=== PATIENT | female | born 1995 | race Asian ===

== ENCOUNTER 2017-08-01 23:55 | Emergency (ER) | payer OTHER ==
[~2017-08-01] VITALS: Ht 160 cm; Wt 52.8 kg
[2017-08-02 00:09] VITALS: TEMP 37.1; Ht 160 cm; Wt 52.8 kg
[2017-08-02 01:09] LABS: HEMATOCRIT 43.1 % (37-47); MEAN CELL VOLUME 91.3 fL (80-100); MEAN CORPUSCULAR HEMOGLOBIN 29.7 pg (25-34); MEAN CORPUSCULAR HGB CONC 32.5 g/dl (32-36); MEAN PLATELET VOLUME 10.6 fL (7.4-10.4); PLATELET COUNT 237 K/uL (130-400); RED CELL DISTRIBUTION WIDTH CV 12.4 % (11.5-14.5); RED CELL DISTRIBUTION WIDTH SD 41.7 fL (36.4-46.3)
[2017-08-02 01:31] LABS: ALBUMIN 3.9 gm/dl (3.4-5.0); ALT/SGPT 15 U/L (12-78); AST/SGOT 10 U/L (15-37); BLOOD UREA NITROGEN 12 mg/dl (7-18); CALCIUM 8.6 mg/dl (8.5-10.1); CARBON DIOXIDE 25 mmol/L (21-32); CREATININE 0.54 mg/dl (0.60-1.20); GLUCOSE 95 mg/dl (70-99); POTASSIUM 3.9 mmol/L (3.5-5.1); SODIUM 138 mmol/L (136-145)
[2017-08-02 01:41] LABS: ALKALINE PHOSPHATASE 44 U/L (45-117); TOTAL PROTEIN 7.6 gm/dl (6.4-8.2)
--- NOTE | 2017-08-02 09:13 | EMERGENCY ROOM VISIT NOTE ---
History Report prepared by Lexy: Aminah Mooney Under the Supervision of: Dr. Marielena Betancur D.O. First contact with patient: 00:05 Chief Complaint: MENTAL HEALTH EVALUATION Stated Complaint: HYPOTHERMIA History of Present Illness The patient is a 22 year old female who presents to the Emergency Room for a mental health evaluation. Per EMS, they received a call that the patient was walking by [employer] in her [facility]. They report police picked her up at [place]. He reports that she kept telling him she didn't want to go home and she wanted to kill herself, but nothing else. The patient states that she doesn't want to waste my time and that others need help instead of her. She reports that she attends [employer] and is here visiting a friend. She reports that she has been here a month and has taken the semester off. The patient states that tonight she just walked out of her room and was trying to of hypothermia. She states that she is unsure if her friend's noticed that she left. She reports that she has had thoughts of committing suicide in the past, but never tried. She reports that she reads a lot of psychology books and has determined that she is just weak. She states that she has been depressed for a while. The patient states that she is afraid of people. She denies anyone hurting her. The patient denies alcohol use, drug use , abdominal pain, chance of , and seeing a counselor. The patient notes her [facility] is currently. The patient notes her parents are in [place], but she does not want to be called [place]. Source of History: patient Onset: prior to arrival Position: other (global) Quality: other (mental health) Timing: other (episode) Associated Symptoms: No abdominal pain Note: The patient complains of suicidal ideation with a plan and being afraid of people. The patient denies alcohol use, drug use, chance of , and seeing a counselor. Review of Systems See HPI for pertinent positives & negatives. A total of 10 systems reviewed and were otherwise negative. Past Medical & Surgical Medical Problems: (1) No Known Active Medical Problems Family History No pertinent family history Social History Alcohol Use: none Drug Use: none Marital Status: single Housing Status: lives with roommate Occupation Status: student Current/Historical Medications No Active Prescriptions or Reported Meds Allergies Coded Allergies: No Known Allergies (Unverified , 08/02/17) Physical Exam Vital Signs Date Time Temp Pulse Resp B/P (MAP) Pulse Ox O2 Delivery O2 Flow Rate FiO2 08/02/17 08:42 90 16 99/69 100 08/02/17 03:12 75 16 105/62 99 Room Air 08/02/17 00:09 37.1 87 16 115/75 98 Room Air Physical Exam General: Sobbing. HEENT: Head - normocephalic and atraumatic Pupils are equal, round, and reactive to light. Extraocular eye muscles are intact, and sclera are anicteric. Nose - moist nasal mucosa without discharge. Mouth - moist buccal mucosa. Oropharynx is nonerythematous and there is no tonsillar exudate or edema noted. Neck: Supple; no JVD, nuchal rigidity, cervical lymphadenopathy. Heart: Regular rate and rhythm. There is a normal S1 and S2 with no murmurs, clicks, or gallops appreciated. Lungs: Clear to auscultation bilaterally with no wheezes, rales, or rhonchi. Abdomen: Soft, completely nontender, nondistended, with good bowel sounds. There are no palpable pulsatile masses or hepatosplenomegaly. There is no guarding, rigidity, or rebound noted. Extremities: No evidence of cyanosis, clubbing, or edema. There are easily palpable peripheral pulses. Skin: warm and dry with good turgor and no rashes. Psych: Depressed. Admits to suicidal ideation with a plan to kill herself by hypothermia. Medical Decision & Procedures Laboratory Results 08/02/17 00:48 08/02/17 00:48 Test 08/02/17 00:30 08/02/17 00:48 Urine Color YELLOW Urine Appearance CLEAR (CLEAR) Urine pH 6.0 (4.5-7.5) Urine Specific [place] 1.020 (1.000-1.030) Urine Protein NEG (NEG) Urine Glucose (UA) NEG (NEG) Urine Ketones NEG (NEG) Urine Occult Blood 2+ (NEG) Urine Nitrite NEG (NEG) Urine Bilirubin NEG (NEG) Urine Urobilinogen NEG (NEG) Urine Leukocyte Esterase NEG (NEG) Urine WBC (Auto) 1-5 /hpf (0-5) Urine RBC (Auto) 0-4 /hpf (0-4) Urine Hyaline Casts (Auto) 1-5 /lpf (0-5) Urine Epithelial Cells (Auto) 20-30 /lpf (0-5) Urine Bacteria (Auto) NEG (NEG) Urine Test NEG (NEG) Urine Opiates Screen NEG (NEG) Urine Methadone, Qualitative NEG (NEG) Urine Barbiturates NEG (NEG) Urine Phencyclidine (PCP) Level NEG (NEG) Ur Amphetamine/Methamphetamine NEG (NEG) MDMA (Ecstasy) Screen NEG (NEG) Urine Benzodiazepines Screen NEG (NEG) Urine Cocaine Metabolite NEG (NEG) Urine Marijuana (THC) NEG (NEG) Red Blood Count 4.72 M/uL (4.2-5.4) Mean Corpuscular Volume 91.3 fL (80-100) Mean Corpuscular Hemoglobin 29.7 pg (25-34) Mean Corpuscular Hemoglobin Concent 32.5 g/dl (32-36) RDW Standard Deviation 41.7 fL (36.4-46.3) RDW Coefficient of Variation 12.4 % (11.5-14.5) Mean Platelet Volume 10.6 fL (7.4-10.4) Anion Gap 7.0 mmol/L (3-11) Est Creatinine Clear Calc Drug Dose 136.3 ml/min Estimated GFR () > 150.0 Estimated GFR (Non- 134.9 BUN/Creatinine Ratio 23.0 (10-20) Calcium Level 8.6 mg/dl (8.5-10.1) Total Bilirubin 0.3 mg/dl (0.2-1) Direct Bilirubin < 0.1 mg/dl (0-0.2) Aspartate Amino Transf (AST/SGOT) 10 U/L (15-37) Alanine Aminotransferase (ALT/SGPT) 15 U/L (12-78) Alkaline Phosphatase 44 U/L (45-117) Total Protein 7.6 gm/dl (6.4-8.2) Albumin 3.9 gm/dl (3.4-5.0) Thyroid Stimulating Hormone (TSH) 1.890 uIu/ml (0.300-4.500) Salicylates Level < 1.7 mg/dl (2.8-20) Acetaminophen Level < 2 ug/ml (10-30) Ethyl Alcohol mg/dL < 3.0 mg/dl (0-3) Laboratory results per my review. ED Course 0008: Past medical records reviewed. The patient was evaluated in room A5. A complete history and physical exam was performed. Labs were drawn as above. 0229: The patient is medically clear and being evaluated by Psych. The patient is unwilling to admit herself voluntarily. 0441: She admits to suicidal ideation with a plan. I filled out the 302 paperwork for the patient. 0545: The patient is resting at this time. The bed search will continue. 0730: The patient was signed out to Dr. Kaplan at change of shift awaiting bed search. Medical Decision The patient is a 22 year old female who presents to the Emergency Room for a mental health evaluation. Differential diagnoses include drug intoxication, mood disorder, thought disorder, suicidal ideation. LABS: No leukocytosis Stable H&H Normal TSH Normal renal function Normal glucose Normal LFTs Negative drug screen Negative Tylenol, Aspirin, and Alcohol Negative this is a 22-year-old female patient who is visiting the area from [place]. The patient was not very forthcoming with information during my evaluation of her. However, she did say that she was suicidal. She was sobbing on my exam. She describes a specific plan to commit suicide by staying outside until she becomes hypothermic. She was found walking on a very cold night in her [facility]. Medication Reconcilliation Current Medication List: was personally reviewed by me Blood Pressure Screening Patient's blood pressure: Normal blood pressure Blood pressure disposition: Did not require urgent referral Impression Primary Impression: Suicidal ideation Additional Impression: Hypothermia Scribe Attestation The scribe's documentation has been prepared under my direction and personally reviewed by me in its entirety. I confirm that the note above accurately reflects all work, treatment, procedures, and medical decision making performed by me. Departure Information Dispostion Still a Patient Prescriptions No Active Prescriptions or Reported Meds Patient Instructions My [facility] Problem Qualifiers Additional Impression: Hypothermia Encounter type: initial encounter Qualified Codes: T68.XXXA - Hypothermia, initial encounter
[2017-08-02 13:35] VITALS: BP 112/74; PULSE 76; O2SAT 99
== END 2017-08-02 13:36 | disposition short-term general hospital (02) ==
LOC: EDBD 23:55 → C.EDA 23:58
DX: T68.XXXA Hypothermia, initial encounter (principal); X31.XXXA Exposure to excessive natural cold, initial encounter; R45.851 Suicidal ideations; F32.9 Major depressive disorder, single episode, unspecified